=== PATIENT | female | born 1995 | race Caucasian/White ===

== ENCOUNTER 2019-05-28 08:57 | Emergency (ER) | payer BC ==
[2019-05-28 09:29] VITALS: BP 121/80
--- NOTE | 2019-05-28 10:20 | UC ---
UC General HPI - HPI Summary HPI Summary: 1 DAY HX OF SORE THROAT, RUNNY NOSE AND COUGH WITH GREEN SPUTUM. NO CP, SOB OR FEVER. + WHEEZING. HX ASTHMA. SON WITH BRONCHITIS AND IS ON AN ANTIBIOTIC. - History of Current Complaint Chief Complaint: UCRespiratory Stated Complaint: COUGH SORE THROAT CONGESTION FEVER Time Seen by Provider: 05/28/19 10:13 Hx Obtained From: Patient Hx Last Menstrual Period: 05/2019 Onset/Duration: Gradual Onset Pain Intensity: 0 - Allergy/Home Medications Allergies/Adverse Reactions: Allergies Allergy/AdvReac Type Severity Reaction Status Date / Time ibuprofen Allergy Bleeding Verified 05/28/19 09:24 latex Allergy Itching Verified 05/28/19 09:24 quetiapine [From Seroquel] Allergy Swelling Verified 05/28/19 09:24 Of Face,Lips,& Throat Home Medications: Home Medications Guaifenesin/Dextromethorphan [Children's Mucinex Cough Liq] 10 ml PO ONCE [History Confirmed 05/28/19] PMH/Surg Hx/FS Hx/Imm Hx Respiratory History: Asthma - Surgical History Surgical History: Yes Surgery Procedure, Year, and Place: left club foot surg - Family History Known Family History: Positive: Non-Contributory - Social History Occupation: Employed Full-time Lives: With Family Alcohol Use: None Substance Use Type: None Smoking Status (MU): Heavy Every Day Tobacco Smoker Type: Cigarettes Amount Used/How Often: 1/3 PPD Review of Systems All Other Systems Reviewed And Are Negative: No Constitutional: Negative: Fever, Chills Cardiovascular: Negative: Palpitations, Chest Pain Musculoskeletal: Negative: Myalgia Neurological: Negative: Headache Is Patient Immunocompromised?: No Physical Exam Triage Information Reviewed: Yes Appearance: Well-Appearing Vital Signs: Initial Vital Signs Temp 98.3 F 05/28/19 09:25 Pulse 85 05/28/19 09:25 Resp 17 05/28/19 09:25 BP 121/80 05/28/19 09:25 Pulse Ox 100 05/28/19 09:25 Vital Signs Reviewed: Yes Eyes: Positive: Conjunctiva Clear ENT: Positive: Pharyngeal erythema - MILD, Nasal congestion, Nasal drainage - CLEAR, TMs normal, Uvula midline. Negative: Trismus, Muffled voice, Hoarse voice Neck: Positive: Supple, Nontender, No Lymphadenopathy Respiratory: Positive: Lungs clear, No respiratory distress, Decreased breath sounds. Negative: Crackles, Rhonchi, Wheezing Cardiovascular: Positive: RRR, No Murmur Abdomen Description: Positive: Nontender Musculoskeletal: Positive: ROM Intact Neurological: Positive: Alert Psychological: Positive: Age Appropriate Behavior Skin Exam: Normal Diagnostics - Laboratory Lab Results: RAPID STREP=NEG Course/Dx - Differential Dx - Multi-Symptom Differential Diagnoses: Other - RAPID STREP=NEG. NO CONCERN FOR PNEUMONIA. ANTIBIOTIC NOT INDICATED. - Diagnoses Provider Diagnosis: URI (upper respiratory infection), Sore throat, Asthma, Bronchitis Discharge ED - Sign-Out/Discharge Documenting (check all that apply): Patient Departure All imaging exams completed and their final reports reviewed: No Studies - Discharge Plan Condition: Stable Disposition: HOME Prescriptions: Albuterol HFA INHALER* [Ventolin HFA Inhaler*] 2 puff INH Q6H #1 mdi predniSONE TAB* [Deltasone 20 MG TAB*] 40 mg PO DAILY 5 Days #10 tab Patient Education Materials: Upper Respiratory Infection (DC), Acute Bronchitis (ED) Forms: *Work Release Referrals: Isaak Torres MD [Medical Doctor] - 7 Days - Billing Disposition and Condition Condition: STABLE Disposition: Home - Attestation Statements Provider Attestation: I was available for consult. This patient was seen by the JEAN. The patient was not presented to, seen by, or examined by me. -Lisa
== END 2019-05-28 10:30 | disposition home or self-care (01) ==
LOC: UCCORT 08:57
DX: J06.9 Acute upper respiratory infection, unspecified (principal); J02.9 Acute pharyngitis, unspecified; J45.909 Unspecified asthma, uncomplicated; F17.210 Nicotine dependence, cigarettes, uncomplicated
CPT/HCPCS: 87651; 99202; G0463

== ENCOUNTER 2020-01-29 11:52 | Inpatient (IN) ==
[2020-01-29] MEDS ORDERED: Lactated Ringers 1000 ml BAG 1,000 ML IV ONE (12:16)
[2020-01-29] MEDS ORDERED: Lactated Ringers 1000 ml BAG 1,000 ML IV SCH (13:00)
[2020-01-29 13:03] LABS: Hematocrit 31 % (35-47); Hemoglobin 10.3 g/dL (12.0-16.0); Mean Corpuscular HGB Conc 33 g/dL (31-36); Mean Corpuscular Hemoglobin 29 pg (27-31); Mean Corpuscular Volume 89 fL (80-97); Mean Platelet Volume 8.8 fL (7.4-10.4); Platelet Count 361 10^3/uL (150-450); Red Blood Count 3.52 10^6 /uL (3.70-4.87); Red Cell Distribution Width 15 % (10-15); White Blood Count 18.4 10^3/uL (3.5-10.8)
[2020-01-29 13:13] LABS: Platelet Count 359 10^3/ul (150-450)
[2020-01-29 13:31] LABS: Albumin 3.5 g/dL (3.2-5.2); Albumin/Globulin Ratio 1.3 (1-3); BUN/Creatinine Ratio 11.7 (8-20); Calcium 9.3 mg/dL (8.6-10.3); EGFR African American 148.6 (>60); EGFR Non-African American 122.8 (>60); Globulin 2.7 g/dL (2-4); Potassium 4.1 mmol/L (3.5-5.0); Total Bilirubin 0.2 mg/dL (0.2-1.0); Total Protein 6.2 g/dL (6.4-8.9); Uric Acid 5.1 mg/dL (2.3-6.6)
[2020-01-29 13:32] LABS: ABS Basophils 0.2 10^3/ul (0-0.2); ABS Eosinophils 0.2 10^3/ul (0-0.6); ABS Lymphocytes 5.1 10^3/ul (1.0-4.8); ABS Monocytes 1.4 10^3/ul (0-0.8); Eosinophil % 1.1 %; Lymphocyte % 27.5 %
[2020-01-29 13:43] LABS: Activated Partial Thrombo Time 27.1 seconds (26.0-38.0); INR 0.98 (0.82-1.09)
[2020-01-29 13:48] LABS: Schistocytes ABSENT
[2020-01-29 13:50] LABS: Urine Benzodiazepine Screen None Detected (None Detect); Urine Opiates Screen None Detected (None Detect)
[2020-01-29 14:00] LABS: Fibrinogen 500.1 mg/dL (110.8-404.3)
[2020-01-29] MEDS ORDERED: Oxytocin in LR 20 UNITS/1,000 ML BAG IVPB SCH (14:00)
[2020-01-30] MEDS ORDERED: OBEPIDURAL 250 ML EPIDURAL ONE (00:29)
[2020-01-30] MEDS ORDERED: Bupivacaine 0.25% SDV PF 10 ML VIAL INJ ONE (00:34)
[2020-01-30] MEDS ORDERED: Sodium Citrate/Citric Acid LIQ 15 ML UDC PO PRN (00:59)
[2020-01-30] MEDS ORDERED: Phenylephrine 40 mcg/mL 10mL (400mcg) SYRINGE IV PUSH PRN (00:59)
[2020-01-30] MEDS ORDERED: EPHEDrine (Pressors) 50 MG/ML VIAL IV PUSH PRN (00:59)
[2020-01-30] MEDS ORDERED: Lactated Ringers 1000 ml BAG 1,000 ML IV ONE (00:59)
[2020-01-30] MEDS ORDERED: OBEPIDURAL 250 ML EPIDURAL SCH (01:00)
[2020-01-30] MEDS ORDERED: Lactated Ringers 1000 ml BAG 1,000 ML IV SCH ×2 (01:00→03:00)
[2020-01-30] MEDS ORDERED: Glycerin ADULT 2.4 gm SUPP PR PRN (02:01)
[2020-01-30] MEDS ORDERED: Witch Hazel PAD JAR TOPICAL PRN (02:01)
[2020-01-30] MEDS ORDERED: Dibucaine 1% OINT 28.35 GM TUBE PR PRN (02:01)
[2020-01-30] MEDS ORDERED: Nicotine GUM 4MG FRUIT FLAVOR PO PRN (05:07)
[2020-01-31 07:44] LABS: Hematocrit 28 % (35-47); Hemoglobin 9.2 g/dL (12.0-16.0); Mean Corpuscular HGB Conc 33 g/dL (31-36); Mean Corpuscular Hemoglobin 29 pg (27-31); Mean Corpuscular Volume 90 fL (80-97); Mean Platelet Volume 8.9 fL (7.4-10.4); Platelet Count 330 10^3/uL (150-450); Red Blood Count 3.13 10^6 /uL (3.70-4.87); Red Cell Distribution Width 15 % (10-15); White Blood Count 18.4 10^3/uL (3.5-10.8)
[2020-01-31 07:50] LABS: ABS Basophils 0.1 10^3/ul (0-0.2); ABS Eosinophils 0.4 10^3/ul (0-0.6); ABS Lymphocytes 5.8 10^3/ul (1.0-4.8); ABS Monocytes 1.7 10^3/ul (0-0.8); Eosinophil % 2.1 %; Lymphocyte % 31.7 %; Nucleated Red Blood Cells % 0.2
[2020-01-31 08:31] VITALS: BP 115/75
== END 2020-01-31 10:27 | disposition home or self-care (01) | DRG 560 ==
LOC: MCHOBOUT 11:52 → MCHOB 12:13
PROVIDERS: ADMIT Obstetrics & Gynecology; ATTEND Obstetrics & Gynecology

== ENCOUNTER 2022-06-26 15:00 | Inpatient (IN) ==
[2022-06-26 16:44] LABS: ABS Basophils 0.1 10^3/ul (0-0.2); ABS Eosinophils 0.1 10^3/ul (0-0.6); ABS Lymphocytes 3.7 10^3/ul (1.0-4.8); ABS Monocytes 0.9 10^3/ul (0-0.8); ABS Neutrophils 10.5 10^3/ul (1.5-7.7); Eosinophil % 0.7 %; Hematocrit 31 % (35-47); Hemoglobin 9.7 g/dL (12.0-16.0); Lymphocyte % 24.1 %; Mean Corpuscular HGB Conc 31 g/dL (31-36); Mean Corpuscular Hemoglobin 25 pg (27-31); Mean Corpuscular Volume 80 fL (80-97); Mean Platelet Volume 9.7 fL (7.4-10.4); Nucleated Red Blood Cells % 0.2; Platelet Count 357 10^3/uL (150-450); Red Blood Count 3.93 10^6 /uL (3.70-4.87); Red Cell Distribution Width 17 % (10-15); White Blood Count 15.3 10^3/uL (3.5-10.8)
[2022-06-26 16:54] LABS: Albumin 3.5 g/dL (3.2-5.2); Albumin/Globulin Ratio 1.3 (1-3); Calcium 9.7 mg/dL (8.6-10.3); Globulin 2.8 g/dL (2-4); Potassium 4.5 mmol/L (3.5-5.0); Total Bilirubin 0.3 mg/dL (0.2-1.0); Total Protein 6.3 g/dL (6.4-8.9); Uric Acid 5.9 mg/dL (2.3-6.6); eGFR CKD-EPI 122.7 (>60)
[2022-06-26] MEDS ORDERED: Lactated Ringers 1000 ml BAG 1,000 ML IV ONE (17:58)
[2022-06-26] MEDS ORDERED: Buffered Lidocaine 1% SYRIN 1 ml INTRADERM ONE (17:58)
[2022-06-26 18:53] LABS: Urine Benzodiazepine Screen None Detected (None Detect); Urine Cannabinoids Screen None Detected (None Detect); Urine Opiates Screen None Detected (None Detect)
[2022-06-26] MEDS ORDERED: Oxytocin in LR 20,000 MILLI.UNIT/1,000 ML BAG IV SCH (19:00)
[2022-06-27] MEDS: Lactated Ringers 1000 ml BAG 1,000 ML IV SCH ×2 (01:54→08:46)
[2022-06-27] MEDS ORDERED: OBEPIDURAL (200 ML) 200 ML EPIDURAL ONE (08:35)
[2022-06-27] MEDS ORDERED: Lidocaine/Epinephrin 1.5%/200 5 ML AMP INJ ONE (08:35)
[2022-06-27] MEDS ORDERED: fentaNYL 100 mcg/2 ml 50 MCG/ML VIAL ONE (09:43)
[2022-06-27] MEDS ORDERED: Witch Hazel PAD JAR TOPICAL PRN (10:44)
[2022-06-27] MEDS ORDERED: Glycerin ADULT 2.4 gm SUPP PR PRN (10:44)
[2022-06-27] MEDS ORDERED: Dibucaine 1% OINT 28.35 GM TUBE PR PRN (10:44)
[2022-06-27] MEDS ORDERED: Oxytocin in LR 20,000 MILLI.UNIT/1,000 ML BAG IV SCH (10:45)
[2022-06-27 11:00] LABS: Urine Appearance Cloudy; Urine Bilirubin Negative (Negative); Urine Blood 3+ (Negative); Urine Color Yellow; Urine Glucose Negative (Negative); Urine Ketones 1+ (Negative); Urine Nitrite Negative (Negative); Urine Protein 1+(30 mg/dL) (Negative); Urine Specific Gravity 1.011 (1.002-1.030); Urine Urobilinogen Negative (Negative)
[2022-06-27] MEDS ORDERED: Lactated Ringers 1000 ml BAG 1,000 ML IV SCH (11:00)
[2022-06-27 11:04] LABS: Urine Bacteria 1+ (Absent); Urine Red Blood Cell 3+(>10/hpf) (Absent); Urine Renal Epithelial Cells Present (Absent); Urine Squamous Epithelial Cell Present (Absent); Urine White Blood Cell 2+(11-20/hpf) (Absent)
[2022-06-28 07:08] LABS: Hematocrit 28 % (35-47); Hemoglobin 8.6 g/dL (12.0-16.0); Mean Corpuscular HGB Conc 31 g/dL (31-36); Mean Corpuscular Hemoglobin 25 pg (27-31); Mean Corpuscular Volume 79 fL (80-97); Mean Platelet Volume 9.4 fL (7.4-10.4); Platelet Count 342 10^3/uL (150-450); Red Cell Distribution Width 17 % (10-15); White Blood Count 20.7 10^3/uL (3.5-10.8)
[2022-06-28 08:19] VITALS: BP 129/89
[2022-06-28 09:04] LABS: ABS Basophils 0.3 10^3/ul (0-0.2); ABS Eosinophils 0.3 10^3/ul (0-0.6); ABS Lymphocytes 5.7 10^3/ul (1.0-4.8); ABS Monocytes 1.4 10^3/ul (0-0.8); Eosinophil % 1.3 %; Lymphocyte % 27.8 %; Nucleated Red Blood Cells % 0.1
== END 2022-06-28 13:16 | disposition home or self-care (01) | DRG 560 ==
LOC: MCHOBOUT 15:00 → MCHOB 18:07
PROVIDERS: ADMIT Obstetrics & Gynecology; ATTEND Obstetrics & Gynecology

== ENCOUNTER 2023-08-09 16:05 | Inpatient (IN) ==
[2023-08-09] MEDS ORDERED: Lidocaine 1% VIAL 10 MG/ML 30 ML VIAL INJ PRN (16:29)
[2023-08-09] MEDS ORDERED: Lactated Ringers 1000 ml BAG 1,000 ML IV ONE (16:29)
[2023-08-09] MEDS ORDERED: Buffered Lidocaine 1% SYRIN 1 ml INTRADERM ONE (16:29)
[2023-08-09] MEDS ORDERED: Oxytocin in LR 20,000 MILLI.UNIT/1,000 ML BAG IV SCH (16:30)
[2023-08-09] MEDS ORDERED: Lidocaine 2% JELLY 6 ML Topical TOPICAL ONE (16:35)
[2023-08-09] MEDS ORDERED: Oxytocin in LR 20,000 MILLI.UNIT/1,000 ML BAG IV ONE (16:42)
[2023-08-09] MEDS ORDERED: Lactated Ringers 1000 ml BAG 1,000 ML IV SCH ×2 (17:00→18:00)
[2023-08-09 17:09] LABS: Hematocrit 34.1 % (35-45); Mean Corpuscular Hemoglobin 27.1 pg (27-33); Mean Corpuscular Hgb Conc 32.1 g/dL (31-36); Mean Corpuscular Volume 84.3 fL (80-97); Mean Platelet Volume 9.5 fL (7.5-11.2); Platelet Count 391 10^3/uL (150-450); Red Blood Count 4.05 10^6/uL (3.63-4.92); Red Cell Distribution Width 19.6 % (12-17); White Blood Count 20.7 10^3/uL (3.8-11.8)
[2023-08-09 17:12] LABS: ABS Basophils 0.2 10^3/uL (0.0-0.1); ABS Eosinophils 0.1 10^3/uL (0.0-0.5); ABS Lymphocytes 5.4 10^3/uL (1.0-4.8); ABS Neutrophils 14.1 10^3/uL (1.5-7.6); ABS Nucleated RBC 0.04 10^3/ul; Eosinophil % 0.4 %; Lymphocyte % 25.9 %; Nucleated Red Blood Cells % 0.2 %/100WBC (0.0-0.8)
[2023-08-09] MEDS ORDERED: Glycerin ADULT 2.4 gm SUPP PR PRN (17:24)
[2023-08-09] MEDS ORDERED: Witch Hazel PAD JAR TOPICAL PRN (17:24)
[2023-08-09] MEDS ORDERED: Dibucaine 1% OINT 28.35 GM TUBE PR PRN (17:24)
[2023-08-09 17:28] LABS: ALT 7 U/L (7-52); Albumin 3.8 g/dL (3.2-5.2); Albumin/Globulin Ratio 1.1 (1-3); Alkaline Phosphatase 147 U/L (35-149); Anion Gap 13 mmol/L (2-16); Blood Urea Nitrogen 6 mg/dL (6-24); CO2 Carbon Dioxide 20 mmol/L (22-32); Calcium 10.6 mg/dL (8.6-10.3); Chloride 101 mmol/L (101-111); Creatinine, Serum 0.65 mg/dL (0.51-0.95); Globulin 3.5 g/dL (2-4); Glucose 77 mg/dL (70-100); Sodium 134 mmol/L (135-145); Total Bilirubin 0.5 mg/dL (0.2-1.0); Total Protein 7.3 g/dL (6.4-8.9); eGFR CKD-EPI 122.9 (>60)
[2023-08-09 18:19] LABS: Urine Benzodiazepine Screen None Detected (None Detect); Urine Cannabinoids Screen None Detected (None Detect); Urine Opiates Screen None Detected (None Detect)
[2023-08-10] MEDS ORDERED: Ondansetron ODT 4 mg TAB 4 MG TAB PO ONE (05:03)
[2023-08-10 07:39] LABS: Hematocrit 26.3 % (35-45); Hemoglobin 8.6 g/dL (11.5-14.3); Mean Corpuscular Hemoglobin 27.3 pg (27-33); Mean Corpuscular Hgb Conc 32.7 g/dL (31-36); Mean Corpuscular Volume 83.5 fL (80-97); Mean Platelet Volume 9.2 fL (7.5-11.2); Platelet Count 315 10^3/uL (150-450); Red Blood Count 3.15 10^6/uL (3.63-4.92); White Blood Count 25.1 10^3/uL (3.8-11.8)
[2023-08-10 07:57] LABS: Albumin 3.2 g/dL (3.2-5.2); Albumin/Globulin Ratio 1.1 (1-3); Calcium 8.8 mg/dL (8.6-10.3); Creatinine, Serum 0.61 mg/dL (0.51-0.95); Globulin 2.8 g/dL (2-4); Potassium 3.5 mmol/L (3.5-5.0); Total Bilirubin 0.2 mg/dL (0.2-1.0); eGFR CKD-EPI 124.8 (>60)
[2023-08-10 08:18] LABS: ABS Basophils 0.2 10^3/uL (0.0-0.1); ABS Eosinophils 0.3 10^3/uL (0.0-0.5); ABS Lymphocytes 5.5 10^3/uL (1.0-4.8); ABS Monocytes 1.8 10^3/uL (0.0-0.9); ABS Neutrophils 17.4 10^3/uL (1.5-7.6); ABS Nucleated RBC 0.02 10^3/ul; Eosinophil % 1.1 %; Lymphocyte % 21.7 %; Nucleated Red Blood Cells % 0.1 %/100WBC (0.0-0.8)
[2023-08-10 08:19] LABS: RBC Morphology Normal (Normal)
[2023-08-10] MEDS ORDERED: Calcium Carb (TUMS) 500 mg CHEW TAB PO PRN (09:37)
[2023-08-10 19:41] VITALS: BP 139/95
== END 2023-08-10 20:00 | disposition home or self-care (01) | DRG 807 ==
LOC: MCHOBOUT 16:05 → MCHOB 16:30
PROVIDERS: ADMIT Advanced Practice Midwife; ATTEND Advanced Practice Midwife